=== PATIENT | female | born 1955 | race African-American/Black ===

== ENCOUNTER 2018-07-06 08:00 | Inpatient (IN) | payer OTHER ==
[2018-06-20 13:36] VITALS: BMI 28.3
[2018-07-06] MEDS ORDERED: TRANEXAMIC ACID 1000 MG/10 ML VIAL IVPUSH ONE (08:11)
[2018-07-06] MEDS ORDERED: VANCOMYCIN 1,000 MG in DEXTROSE 5%-WATER - 250 ML IVPB ONE (08:11)
[2018-07-06] MEDS ORDERED: PROPOFOL 20 ML ONE ×7 (11:58→15:09)
[2018-07-06] MEDS ORDERED: BUPIVACAINE HCL/PF 0.5% (5MG/ML) 10 ML VIAL ONE (12:34)
[2018-07-06] MEDS ORDERED: BUPIVACAINE LIPOSOME/PF (EXPAREL) 266 MG/20 ML VIAL ONE (12:47)
[2018-07-06] MEDS ORDERED: BUPIVACAINE HCL/PF (5 MG/ML) 30 ML VIAL IJ ONE (12:47)
[2018-07-06] MEDS ORDERED: MIDAZOLAM HCL 2 MG/2 ML SINGLE DOSE VIAL ONE (12:47)
[2018-07-06] MEDS ORDERED: morphine CARPU-JECT 10 MG/1 ML DISP.SYRIN ONE (12:59)
[2018-07-06] MEDS ORDERED: BUPIVACAINE HCL/PF 2.5 MG/ML - 30 ML VIAL IJ ONE (13:02)
[2018-07-06] MEDS ORDERED: KETOROLAC TROMETHAMINE 60 MG/2 ML VIAL ONE (13:02)
[2018-07-06] MEDS ORDERED: EPINEPHrine/PF 1 MG/1 ML (1:1,000) AMPULE ONE ×2 (13:03→13:25)
[2018-07-06] MEDS ORDERED: ONDANSETRON 4 MG/2 ML VIAL IVPUSH PRN ×2 (15:49→16:22)
[2018-07-06] MEDS ORDERED: MAG HYDROX/AL HYDROX/SIMETH 30 ML UNIT-DOSE CUP PO PRN (15:49)
--- NOTE | 2018-07-06 15:54 | PN ---
Progress Note (short form) - Note Progress Note: 63F s/p right total knee replacement POD #0. -Pain control. -DVT PPx: -Chemical: ASA 81mg PO BID x 6 weeks. -Mechanical: ALEX's, SCD's. -Incentive spirometry. -PT/OT/Rehab, OOB. -WBAT LLE. -Antibiotics: Ancef x 2 post op doses. -f/u post-op trial of void. -Diet as tolerated. -Keep dressing clean & dry. -Care per medical hospitalist team. -f/u [facility] [place] office 07/15/2018; call for appointment; [phone]. -Will follow. Edy Thomas MD (Orthopaedic Surgery).
--- NOTE | 2018-07-06 15:56 | OP ---
Operative Note - Note: Operative Date: 07/06/18 Pre-Operative Diagnosis: Right knee DJD Operation: Right total knee replacement Implants: Vamsi Triathlon. Femur - 4. Tibia - 3. Poly - 9mm, PS. Patella - 27mm Post-Operative Diagnosis: Same as Pre-op Surgeon: Edy Thomas Quality Control Coordinator: Ruben Thomas Anesthesiologist/MANAGER PEDIATRIC: Amie Newton Anesthesia: Spinal Specimens Removed: Bone, soft tissue Estimated Blood Loss (mls): 0 Drains & Tubes with Location: 1 x deep drain Fluid Volume Replaced (mls): 1,000 Operative Report Dictated: Yes
[2018-07-06] MEDS ORDERED: LACTATED RINGERS SOLUTION 1,000 ML IV SCH ×2 (16:00→16:30)
[2018-07-06] MEDS ORDERED: oxyCODONE HCL 5 MG TABLET PO PRN (16:22)
[2018-07-06] MEDS ORDERED: ACETAMINOPHEN 325 MG TABLET (FP) ONE (17:03)
[2018-07-06] MEDS ORDERED: ACETAMINOPHEN 325 MG TABLET (FP) PO ONE (17:15)
--- NOTE | 2018-07-06 19:25 | OP ---
DATE OF OPERATION: SURGEON: Edy Thomas M.D. MANAGER APPLICATION: Ruben Thomas M.D., Loni Stone PREOPERATIVE DIAGNOSIS: Tricompartment osteoarthritis right knee. POSTOPERATIVE DIAGNOSIS: Tricompartment osteoarthritis right knee with fixed valgus fixed deformity. ANESTHESIA: Spinal anesthesia with conscious sedation and appropriate peripheral block. OPERATION PERFORMED: Right posterior stabilized cemented total knee arthroplasty (PowerFile). ANTIBIOTICS GIVEN: 1 g Kefzol, 1 g vancomycin preoperative, 1 g Kefzol given at the end of the procedure. OPERATION DETAILS: The patient was correctly identified, brought in the operating room. Right lower extremity was prepped pre-draped in the routine manner with Betadine scrub solution, wiped with alcohol, DuraPrep applied. Midline incision was utilized. Dissection was taken through the subcutaneous tissue to the fascia, and through the quadriceps mechanism the quadriceps tendon was split longitudinally. The medial parapatellar incision utilized around the medial aspect of the tibial tubercle. The tissues were dissected sharply off the proximal medial tibia. The knee was flexed and the tibia subluxed anteriorly. The menisci resected, and the bone cuts were made using the PowerFile instrumentation system. This was tibia cut in neutral providing an accurate alignment along the mid shaft of the tibia. The femur was cut to 3 degrees of external rotation and 4 degrees of varus, the alternate cut was used at 10 mm. All bone cuts were made and prepared with the appropriate jig system. Once this had been performed, the bone bed was thoroughly lavaged, cementing was in one stage with to receive a size 4 Triathlon posterior stabilized femoral component, the universal baseplate measured size 3, and a 27 mm polyethylene liner inserted. The polyethylene liner for the tibia was a size 9 x 3. Patellar tracking was normal. Stability was excellent. The extension flexion gaps were even at 9 mm. All extraneous cement was removed appropriately. The knee was flexed with a negative thumb test test, revealing adequate patellar tracking. Closure: quadriceps tendon and parapatellar tendon with 1 Vicryl, subcutaneous 1 and 2-0 Vicryl, skin 3-0 Monocryl with Steri-Strips. Drainage one 8-inch Hemovac x1. No complications. MD JOSE ALEJANDRO Marquez/[id number] MTDD
[2018-07-06] MEDS: SENNOSIDES/DOCUSATE COMBO (SENNA PLUS) TABLET (UD) PO SCH (21:53)
[2018-07-06] MEDS: oxyCODONE HCL 10 MG SUSTAINED ACTING TABLET PO SCH (21:53)
[2018-07-06] MEDS: ASPIRIN 81 MG CHEWABLE TABLETS PO SCH (21:53)
[2018-07-06] MEDS: GABAPENTIN 300 MG CAPSULE (FP) PO SCH (21:53)
[2018-07-06] MEDS: CEFAZOLIN 1 GM/D5W 1 GM/50 ML BAG IVPB SCH (21:53)
[2018-07-06] MEDS: ACETAMINOPHEN 325 MG TABLET (FP) PO SCH (23:50)
[2018-07-07] MEDS: CEFAZOLIN 1 GM/D5W 1 GM/50 ML BAG IVPB SCH (01:33)
--- NOTE | 2018-07-07 08:04 | PN ---
Progress Note (short form) - Note Progress Note: Surgery POD #1 Right TKA patient seen and examined at bedside with no complaints. Patient has not ambulated with PT yet but is up to chair this morning. She is tolerating her diet and denies any CP, SOB, Fever, Chills, N/V. Vital Signs Temp 98.3 F 1018/18 06:39 Pulse 68 18 06:39 Resp 18 07/07/18 06:39 BP 120/60 07/07/18 06:39 Pulse Ox 94 L 07/07/18 06:39 Intake & Output 18 07/06/18 07/07/18 11:59 23:59 11:59 Intake Total 1850 400 Output Total 115 480 Balance 1735 -80 Weight 160 lb Intake: IV 1500 Oral 350 400 Output: Drainage 115 130 Right Knee 40 130 Urine 0 350 Void 350 Other: Voiding Method Bedpan Toilet Height 5 ft 3 in Body Mass Index (BMI) 28.3 Weight Measurement Method Standing Scale PE: A&Ox3, NAD Unlabored resp on RA right LE: Dressings C/D/I with drain securely in place, LE compartments soft, supple and non-tender with +DP pulses and SCDs in place, + Dorsi/ plantar flexion intact ROM at knee 0-75 degrees. Left LE:Compartments, soft, supple and non-tender with +DP pulses Problem List - Problems (1) S/P total knee arthroplasty Assessment/Plan: POD #1 Right TKA doing well -Pain control. -DVT PPx: -Chemical: ASA 81mg PO BID x 6 weeks. -Mechanical: ALEX's, SCD's. -Incentive spirometry. -PT/OT/Rehab, OOB. -WBAT RLE. -Diet as tolerated. -Keep dressing clean & dry. Code(s): Z96.659 - PRESENCE OF UNSPECIFIED ARTIFICIAL KNEE JOINT
[2018-07-07 08:25] LABS: HEMATOCRIT 37.7 % (32.4-45.2); HEMOGLOBIN 12.8 GM/dl (10.7-15.3); MCH 31.5 pg (25.7-33.7); MCHC 33.8 g/dl (32.0-36.0); MEAN CELL VOLUME 93.3 fl (80-96); MEAN PLT VOLUME 9.1 fl (7.5-11.1); PLATELET COUNT 200 K/MM3 (134-434); RBC 4.04 M/mm3 (3.60-5.2); RDW 13.3 % (11.6-15.6); WHITE BLOOD COUNT 8.7 K/mm3 (4.0-10.8)
[2018-07-07 08:36] LABS: ANION GAP 7 MMOL/L (8-16); BLOOD UREA NITROGEN 9 mg/dl (7-18); CALCIUM 8.5 mg/dl (8.4-10.2); CHLORIDE 102 mmol/L (98-107); CO2 27 mmol/L (22-28); CREATININE 0.7 mg/dl (0.6-1.3); GLUCOSE,RANDOM 125 mg/dl (74-106); POTASSIUM 3.8 mmol/L (3.5-5.1); SODIUM 136 mmol/L (136-145)
--- NOTE | 2018-07-07 08:44 | CONSULT ---
Consultation: REQUESTING PROVIDER: Dr Thomas CONSULT REQUEST: We have been asked to medically evaluate this patient for medical management. HISTORY OF PRESENT ILLNESS: Patient is a 63-year-old female with a past medical history of DJD, patient was admitted to the medical surgical floor after an elective right knee replacement 07/06/2018, spinal anesthesia, Dr Thomas REVIEW OF SYSTEMS: CONSTITUTIONAL: Absent: fever, chills, diaphoresis, generalized weakness, malaise, loss of appetite, weight change HEENT: Absent: rhinorrhea, nasal congestion, throat pain, throat swelling, difficulty swallowing, mouth swelling, ear pain, eye pain, visual changes CARDIOVASCULAR: Absent: chest pain, syncope, palpitations, irregular heart rate, lightheadedness , peripheral edema RESPIRATORY: Absent: cough, shortness of breath, dyspnea with exertion, orthopnea, wheezing, stridor, hemoptysis GASTROINTESTINAL: Absent: abdominal pain, abdominal distension, nausea, vomiting, diarrhea, constipation, melena, hematochezia GENITOURINARY: Absent: dysuria, frequency, urgency, hesitancy, hematuria, flank pain, genital pain MUSCULOSKELETAL: Present: right knee pain Absent: myalgia, arthralgia, joint swelling, back pain, neck pain SKIN: Absent: rash, itching, pallor HEMATOLOGIC/IMMUNOLOGIC: Absent: easy bleeding, easy bruising, lymphadenopathy, frequent infections ENDOCRINE: Absent: unexplained weight gain, unexplained weight loss, heat intolerance, cold intolerance NEUROLOGIC: Absent: headache, focal weakness or paresthesias, dizziness, unsteady gait, seizure, mental status changes, bladder or bowel incontinence PSYCHIATRIC: Absent: anxiety, depression, suicidal or homicidal ideation, hallucinations. PHYSICAL EXAMINATION Vital Signs - 24 hr 07/06/18 07/06/18 07/06/18 10:17 16:21 16:30 Temperature 98.5 F 97.7 F Pulse Rate 68 65 70 Respiratory 18 12 18 Rate Blood Pressure 143/79 115/62 115/69 O2 Sat by Pulse 100 100 Oximetry (%) 07/06/18 07/06/18 07/06/18 16:35 16:40 16:45 Temperature Pulse Rate 56 L 56 L 61 Respiratory 18 17 18 Rate Blood Pressure 143/68 124/66 128/65 O2 Sat by Pulse 100 100 100 Oximetry (%) 07/06/18 07/06/18 07/06/18 17:00 17:15 17:30 Temperature Pulse Rate 60 64 59 L Respiratory 10 14 12 Rate Blood Pressure 116/75 111/72 128/71 O2 Sat by Pulse 100 100 100 Oximetry (%) 07/06/18 07/06/18 07/06/18 17:45 18:00 21:00 Temperature Pulse Rate 54 L 58 L Respiratory 12 14 14 Rate Blood Pressure 131/75 130/71 O2 Sat by Pulse 100 Oximetry (%) 07/07/18 06:39 Temperature 98.3 F Pulse Rate 68 Respiratory 18 Rate Blood Pressure 120/60 O2 Sat by Pulse 94 L Oximetry (%) GENERAL: Awake, alert, and fully oriented, in no acute distress. HEAD: Normal with no signs of trauma. EYES: Pupils equal, round and reactive to light, extraocular movements intact, sclera anicteric, conjunctiva clear. No lid lag. EARS, NOSE, THROAT: Ears normal, nares patent, oropharynx clear without exudates. Moist mucous membranes. NECK: Normal range of motion, supple without lymphadenopathy, JVD, or masses. LUNGS: Breath sounds equal, clear to auscultation bilaterally. No wheezes, and no crackles. No accessory muscle use. HEART: Regular rate and rhythm, normal S1 and S2 without murmur, rub or gallop. ABDOMEN: Soft, nontender, not distended, normoactive bowel sounds, no guarding, no rebound, no masses. No hepatomegaly or splenomegaly. MUSCULOSKELETAL: Normal range of motion at all joints. No bony deformities or tenderness. No CVA tenderness. UPPER EXTREMITIES: 2+ pulses, warm, well-perfused. No cyanosis. No clubbing. Cap refill <2 seconds. No peripheral edema. RIGHT LOWER EXTREMITY: scdS, ALEX, hEMOVAC DRAIN, DRESSING CDI LOWER EXTREMITIES: 2+ pulses, warm, well-perfused. No calf tenderness. No peripheral edema. NEUROLOGICAL: Cranial nerves II-XII intact. Normal speech. Normal gait. PSYCHIATRIC: Cooperative. Good eye contact. Appropriate mood and affect. SKIN: Warm, dry, normal turgor, no rashes or lesions noted. Laboratory Results - last 24 hr 07/07/18 07/07/18 08:15 08:15 WBC 8.7 RBC 4.04 Hgb 12.8 Hct 37.7 MCV 93.3 MCH 31.5 MCHC 33.8 RDW 13.3 Plt Count 200 MPV 9.1 Sodium 136 Potassium 3.8 Chloride 102 Carbon Dioxide 27 Anion Gap 7 L BUN 9 Creatinine 0.7 Creat Clearance w eGFR > 60 Random Glucose 125 H Calcium 8.5 Active Medications Generic Name Dose Route Start Last Admin Trade Name Freq PRN Reason Stop Dose Admin Acetaminophen 650 mg 07/06/18 16:30 07/06/18 23:50 Tylenol - PO 07/09/18 16:29 650 mg Q6H DEMAR Administration Al Hydroxide/Mg Hydroxide 30 ml 07/06/18 15:49 Mylanta Oral Suspension - PO Q4H PRN DYSPEPSIA Aspirin 81 mg 07/06/18 22:00 07/06/18 21:53 Asa - PO 81 mg BID DEMAR Administration Gabapentin 300 mg 07/06/18 22:00 07/06/18 21:53 Neurontin - PO 300 mg BID DEMAR Administration Lactated Ringer's 1,000 mls @ 125 mls/hr 07/06/18 16:30 Lactated Ringers Solution IV ASDIR DEMAR Magnesium Hydroxide 30 ml 07/06/18 15:49 Milk Of Magnesia - PO PRN PRN CONSTIPATION Ondansetron HCl 4 mg 07/06/18 15:49 Zofran Injection IVPUSH Q6H PRN NAUSEA Oxycodone HCl 5 mg 07/06/18 16:22 Roxicodone - PO Q3H PRN PAIN LEVEL 1-5 Oxycodone HCl 10 mg 07/06/18 16:22 Roxicodone - PO Q3H PRN PAIN LEVEL 6-10 Oxycodone HCl 10 mg 07/06/18 22:00 07/06/18 21:53 Oxycontin - PO 07/09/18 16:23 10 mg BID DEMAR Administration Pantoprazole Sodium 40 mg 07/07/18 10:00 Protonix - PO DAILY DEMAR Senna/Docusate Sodium 2 tablet 07/06/18 22:00 07/06/18 21:53 Pericolace - PO 2 tablet BID DEMAR Administration ASSESSMENT/PLAN: 1) ms S/P RIGHT TOTAL KNEE REPLACEMENT, POST OP DAY 1 - prn pain medication - physical therapy as per the orthopedist - monitor drain output and hgb/hct Dispo: We will continue to follow the patient. Thank you for this consultative opportunity. Visit type - Emergency Visit Emergency Visit: No - New Patient This patient is new to me today: Yes Date on this admission: 07/07/18 - Critical Care Critical Care patient: No
--- NOTE | 2018-07-07 09:47 | PN ---
Progress Note, Physician Chief Complaint: s/p right knee arthroplasty post op day one History of Present Illness: under spinal anesthesia and peripheral nerve block for post op pain control - Current Medication List Current Medications: Active Medications Acetaminophen (Tylenol -) 650 mg PO Q6H [facility] Stop: 07/09/18 16:29 Last Admin: 07/06/18 23:50 Dose: 650 mg Al Hydroxide/Mg Hydroxide (Mylanta Oral Suspension -) 30 ml PO Q4H PRN PRN Reason: DYSPEPSIA Aspirin (Asa -) 81 mg PO BID [facility] Last Admin: 07/06/18 21:53 Dose: 81 mg Gabapentin (Neurontin -) 300 mg PO BID [facility] Last Admin: 07/06/18 21:53 Dose: 300 mg Lactated Ringer's (Lactated Ringers Solution) 1,000 mls @ 125 mls/hr IV ASDIR [facility] Magnesium Hydroxide (Milk Of Magnesia -) 30 ml PO PRN PRN PRN Reason: CONSTIPATION Ondansetron HCl (Zofran Injection) 4 mg IVPUSH Q6H PRN PRN Reason: NAUSEA Oxycodone HCl (Roxicodone -) 5 mg PO Q3H PRN PRN Reason: PAIN LEVEL 1-5 Oxycodone HCl (Roxicodone -) 10 mg PO Q3H PRN PRN Reason: PAIN LEVEL 6-10 Oxycodone HCl (Oxycontin -) 10 mg PO BID [facility] Stop: 07/09/18 16:23 Last Admin: 07/06/18 21:53 Dose: 10 mg Pantoprazole Sodium (Protonix -) 40 mg PO DAILY [facility] Senna/Docusate Sodium (Pericolace -) 2 tablet PO BID [facility] Last Admin: 07/06/18 21:53 Dose: 2 tablet - Objective Vital Signs: Vital Signs Temperature 98.8 F 07/07/18 08:53 Pulse Rate 67 07/07/18 08:53 Respiratory Rate 16 07/07/18 08:53 Blood Pressure 122/62 07/07/18 08:53 O2 Sat by Pulse Oximetry (%) 94 L 07/07/18 06:39 Constitutional: Yes: Well Nourished Cardiovascular: Yes: WNL Respiratory: Yes: WNL Gastrointestinal: Yes: WNL Labs: CBC, BMP 07/07/18 08:15 07/07/18 08:15 Assessment/Plan no adverse effect from anesthetic, no nausea or vomiting, pain controlled, dept of anesthesia will sign off care at this time.
[2018-07-07] MEDS: ACETAMINOPHEN 325 MG TABLET (FP) PO SCH ×4 (10:25→23:54)
[2018-07-07] MEDS: oxyCODONE HCL 10 MG SUSTAINED ACTING TABLET PO SCH ×2 (10:27→21:25)
[2018-07-07] MEDS: PANTOPRAZOLE 40 MG TABLET (FP) PO SCH (10:28)
[2018-07-07] MEDS: SENNOSIDES/DOCUSATE COMBO (SENNA PLUS) TABLET (UD) PO SCH ×2 (10:28→21:25)
[2018-07-07] MEDS: ASPIRIN 81 MG CHEWABLE TABLETS PO SCH ×2 (10:28→21:25)
[2018-07-07] MEDS: GABAPENTIN 300 MG CAPSULE (FP) PO SCH ×2 (10:29→21:25)
[2018-07-07] MEDS: oxyCODONE HCL 5 MG TABLET PO PRN (23:54)
[2018-07-08] MEDS: oxyCODONE HCL 5 MG TABLET PO PRN ×2 (06:54→10:20)
[2018-07-08] MEDS: ACETAMINOPHEN 325 MG TABLET (FP) PO SCH ×3 (06:55→22:55)
[2018-07-08 09:48] LABS: HEMATOCRIT 32.1 % (32.4-45.2); HEMOGLOBIN 10.9 GM/dl (10.7-15.3); MCH 31.5 pg (25.7-33.7); MCHC 33.9 g/dl (32.0-36.0); MEAN PLT VOLUME 9.3 fl (7.5-11.1); PLATELET COUNT 181 K/MM3 (134-434); RBC 3.45 M/mm3 (3.60-5.2); RDW 13.2 % (11.6-15.6); WHITE BLOOD COUNT 8.1 K/mm3 (4.0-10.8)
[2018-07-08] MEDS: ASPIRIN 81 MG CHEWABLE TABLETS PO SCH ×2 (10:18→21:56)
[2018-07-08] MEDS: oxyCODONE HCL 10 MG SUSTAINED ACTING TABLET PO SCH ×2 (10:19→21:55)
[2018-07-08] MEDS: PANTOPRAZOLE 40 MG TABLET (FP) PO SCH (10:20)
[2018-07-08] MEDS: SENNOSIDES/DOCUSATE COMBO (SENNA PLUS) TABLET (UD) PO SCH ×2 (10:20→21:55)
[2018-07-08] MEDS: GABAPENTIN 300 MG CAPSULE (FP) PO SCH ×2 (10:20→21:55)
--- NOTE | 2018-07-08 11:47 | PN ---
Physical Exam: SUBJECTIVE: Patient seen and examined, ambulated today with physical therapy, reports minimal pain upon movement, denies any paresthesia to the right lower extremity. OBJECTIVE: Patient is a 63-year-old female with a past medical history of DJD, patient was admitted to the medical surgical floor after an elective right knee replacement 07/06/2018, spinal anesthesia, Dr Thomas Vital Signs Period Temp Pulse Resp BP Sys/Saenz Pulse Ox Last 24 Hr 97.9 F-99.0 F 68-78 16-18 98-125/48-67 97-99 GENERAL: The patient is awake, alert, and fully oriented, in no acute distress. HEAD: Normal with no signs of trauma. EYES: PERRL, extraocular movements intact, sclera anicteric, conjunctiva clear. No ptosis. ENT: Ears normal, nares patent, oropharynx clear without exudates, moist mucous membranes. NECK: Trachea midline, full range of motion, supple. LUNGS: Breath sounds equal, clear to auscultation bilaterally, no wheezes, no crackles, no accessory muscle use. HEART: Regular rate and rhythm, S1, S2 without murmur, rub or gallop. ABDOMEN: Soft, nontender, nondistended, normoactive bowel sounds, no guarding, no rebound, no hepatosplenomegaly, no masses. EXTREMITIES: 2+ pulses, warm, well-perfused, no edema. RIGHT LOWER EXTREMITY: hemovac drain notable for 120ml of serrous sangenous drainage within the past 12 hours. scd/jose antonio, less than 3 second capillary refill , + 3 pedal pulse NEUROLOGICAL: Cranial nerves II through XII grossly intact. Normal speech, gait not observed. PSYCH: Normal mood, normal affect. SKIN: Warm, dry, normal turgor, no rashes or lesions noted Laboratory Results - last 24 hr 07/08/18 09:12 WBC 8.1 RBC 3.45 L Hgb 10.9 Hct 32.1 L MCV 93.0 MCH 31.5 MCHC 33.9 RDW 13.2 Plt Count 181 MPV 9.3 CMP Sodium 136 mmol/L (136-145) 07/07/18 08:15 Potassium 3.8 mmol/L (3.5-5.1) 07/07/18 08:15 Chloride 102 mmol/L (98-107) 07/07/18 08:15 Carbon Dioxide 27 mmol/L (22-28) 07/07/18 08:15 Anion Gap 7 MMOL/L (8-16) L 07/07/18 08:15 BUN 9 mg/dl (7-18) 07/07/18 08:15 Creatinine 0.7 mg/dl (0.6-1.3) 07/07/18 08:15 Creat Clearance w eGFR > 60 (>60) 07/07/18 08:15 Random Glucose 125 mg/dl (74-106) H 07/07/18 08:15 Calcium 8.5 mg/dl (8.4-10.2) 07/07/18 08:15 Active Medications Generic Name Dose Route Start Last Admin Trade Name Freq PRN Reason Stop Dose Admin Acetaminophen 650 mg 07/06/18 16:30 07/08/18 10:18 Tylenol - PO 07/09/18 16:29 650 mg Q6H DEMAR Administration Al Hydroxide/Mg Hydroxide 30 ml 07/06/18 15:49 Mylanta Oral Suspension - PO Q4H PRN DYSPEPSIA Aspirin 81 mg 07/06/18 22:00 07/08/18 10:18 Asa - PO 81 mg BID DEMAR Administration Gabapentin 300 mg 07/06/18 22:00 07/08/18 10:20 Neurontin - PO 300 mg BID DEMAR Administration Lactated Ringer's 1,000 mls @ 125 mls/hr 07/06/18 16:30 Lactated Ringers Solution IV ASDIR DEMAR Magnesium Hydroxide 30 ml 07/06/18 15:49 Milk Of Magnesia - PO PRN PRN CONSTIPATION Ondansetron HCl 4 mg 07/06/18 15:49 Zofran Injection IVPUSH Q6H PRN NAUSEA Oxycodone HCl 5 mg 07/06/18 16:22 07/08/18 10:20 Roxicodone - PO 5 mg Q3H PRN Administration PAIN LEVEL 1-5 Oxycodone HCl 10 mg 07/06/18 16:22 Roxicodone - PO Q3H PRN PAIN LEVEL 6-10 Oxycodone HCl 10 mg 07/06/18 22:00 18 10:19 Oxycontin - PO 07/09/18 16:23 10 mg BID DEMAR Administration Pantoprazole Sodium 40 mg 07/07/18 10:00 07/08/18 10:20 Protonix - PO 40 mg DAILY DEMAR Administration Senna/Docusate Sodium 2 tablet 07/06/18 22:00 07/08/18 10:20 Pericolace - PO 2 tablet BID DEMAR Administration ASSESSMENT/PLAN: 1) ms S/P RIGHT TOTAL KNEE REPLACEMENT, POST OP DAY 2 - prn pain medication -drain output 120ml within the past 12 hours - physical therapy as per the orthopedist - monitor drain output and hgb/hct, repeat hgb order for tomorrow am Dispo: We will continue to follow the patient. Thank you for this consultative opportunity. Visit type - Emergency Visit Emergency Visit: No - New Patient This patient is new to me today: No - Critical Care Critical Care patient: No - Discharge Referral Referred to [facility] Med P.C.: No
--- NOTE | 2018-07-08 16:24 | PATH ---
Surgical Pathology Report Patient Name: GAGANDEEP MCBRIDE Med. Rec. #: [id number] /Age/Gender: 1955 (Age: 63) / F Account: [id number] Location: [facility] MED-SURG Taken: 07/06/2018 Received: 07/06/2018 Reported: 07/08/2018 Physicians: Edy Thomas M.D. Specimen(s) Received BONE RIGHT KNEE Clinical History Right knee osteoarthritis Final Diagnosis BONE, KNEE, RIGHT, TOTAL KNEE REPLACEMENT: BONE WITH DEGENERATIVE JOINT DISEASE, FIBROADIPOSE TISSUE, AND REACTIVE SYNOVIUM. Electronically Signed Sharlene Johns M.D. Gross Description Received in formalin labeled "bone right knee," is an 8.5 x 7.0 x 1.7 cm aggregate of multiple portions of bone and soft tissue. The tibial plateau measures 7.0 x 5.5 x 1.4 cm. There is a 1.5 cm in greatest dimension area of eburnation present. The remaining articular surface is woo-yellow and focally granular. The underlying irregular bone is yellow and hard. Metal Buffer sections are submitted in one cassette, following decalcification. /07/07/2018 saudi07/07/2018
[2018-07-08 21:17] LABS: BASO % 0.8 % (0-2.0); EOS % 1.6 % (0-4.5); HEMATOCRIT 33.8 % (32.4-45.2); HEMOGLOBIN 11.2 GM/dl (10.7-15.3); LYMPH % 13.4 % (8-40); MCH 31.4 pg (25.7-33.7); MCHC 33.2 g/dl (32.0-36.0); MEAN CELL VOLUME 94.5 fl (80-96); MEAN PLT VOLUME 10.8 fl (7.5-11.1); MONO % 5.6 % (3.8-10.2); NEUT % 78.6 % (42.8-82.8); PLATELET COUNT 157 K/MM3 (134-434); RBC 3.57 M/mm3 (3.60-5.2); RDW 13.5 % (11.6-15.6); WHITE BLOOD COUNT 8.1 K/mm3 (4.0-10.8)
[2018-07-08 22:02] LABS: URINE APPEARANCE Clear; URINE BILIRUBIN Negative (NEGATIVE); URINE COLOR Yellow; URINE GLUCOSE (UA) Negative (NEGATIVE); URINE KETONE Negative (NEGATIVE); URINE LEUK ESTERASE Negative (NEGATIVE); URINE NITRITE Negative (NEGATIVE); URINE PROTEIN Negative (NEGATIVE); URINE UROBILINOGEN 0.2 (0.2-1.0)
[2018-07-09] MEDS: ACETAMINOPHEN 325 MG TABLET (FP) PO SCH ×2 (04:30→10:30)
[2018-07-09 08:42] LABS: BASO % 0.3 % (0-2.0); EOS % 2.2 % (0-4.5); HEMATOCRIT 32.5 % (32.4-45.2); HEMOGLOBIN 11.1 GM/dl (10.7-15.3); MCH 32.1 pg (25.7-33.7); MEAN CELL VOLUME 94.3 fl (80-96); MEAN PLT VOLUME 9.6 fl (7.5-11.1); MONO % 4.2 % (3.8-10.2); NEUT % 78.3 % (42.8-82.8); PLATELET COUNT 172 K/MM3 (134-434); RBC 3.45 M/mm3 (3.60-5.2); RDW 13.5 % (11.6-15.6); WHITE BLOOD COUNT 7.2 K/mm3 (4.0-10.8)
[2018-07-09] MEDS: ASPIRIN 81 MG CHEWABLE TABLETS PO SCH ×2 (10:14→21:09)
[2018-07-09] MEDS: SENNOSIDES/DOCUSATE COMBO (SENNA PLUS) TABLET (UD) PO SCH ×2 (10:14→21:09)
[2018-07-09] MEDS: GABAPENTIN 300 MG CAPSULE (FP) PO SCH ×2 (10:14→21:09)
[2018-07-09] MEDS: oxyCODONE HCL 10 MG SUSTAINED ACTING TABLET PO SCH ×2 (10:15→21:09)
[2018-07-09] MEDS: MAGNESIUM HYDROX 2400MG/30ML ORAL SUSPENSION 30 ML CUP PO PRN (10:15)
[2018-07-09] MEDS: PANTOPRAZOLE 40 MG TABLET (FP) PO SCH (10:15)
--- NOTE | 2018-07-09 11:38 | PN ---
Progress Note (short form) - Note Progress Note: Subjective: The patient was seen and examined at the bedside, she has no complaints at this time. Worked with PT this morning Reports pain is under control Current Medications Generic Name Dose Route Start Last Admin Trade Name Freq PRN Reason Stop Dose Admin Acetaminophen 650 mg 07/06/18 16:30 07/09/18 04:30 Tylenol - PO 07/09/18 16:29 Not Given Q6H DEMAR Al Hydroxide/Mg Hydroxide 30 ml 07/06/18 15:49 Mylanta Oral Suspension - PO Q4H PRN DYSPEPSIA Aspirin 81 mg 07/06/18 22:00 07/09/18 10:14 Asa - PO 81 mg BID DEMAR Administration Gabapentin 300 mg 07/06/18 22:00 07/09/18 10:14 Neurontin - PO 300 mg BID DEMAR Administration Magnesium Hydroxide 30 ml 07/06/18 15:49 07/09/18 10:15 Milk Of Magnesia - PO 30 ml PRN PRN Administration CONSTIPATION Ondansetron HCl 4 mg 07/06/18 15:49 Zofran Injection IVPUSH Q6H PRN NAUSEA Oxycodone HCl 5 mg 07/06/18 16:22 07/08/18 10:20 Roxicodone - PO 5 mg Q3H PRN Administration PAIN LEVEL 1-5 Oxycodone HCl 10 mg 07/06/18 16:22 Roxicodone - PO Q3H PRN PAIN LEVEL 6-10 Oxycodone HCl 10 mg 07/06/18 22:00 07/09/18 10:15 Oxycontin - PO 07/09/18 16:23 10 mg BID DEMAR Administration Pantoprazole Sodium 40 mg 07/07/18 10:00 07/09/18 10:15 Protonix - PO 40 mg DAILY DEMAR Administration Senna/Docusate Sodium 2 tablet 07/06/18 22:00 07/09/18 10:14 Pericolace - PO 2 tablet BID DEMAR Administration Objective: Vital Signs Period Temp Pulse Resp BP Sys/Saenz Pulse Ox Last 24 Hr 98.7 F-102.5 F 80-99 16-20 115-136/60-70 95-97 Physical Exam: General: NAD, A&Ox3 Lungs: CTA bilaterally Heart: RRR, S1S2 Abd: Soft, non-tender, non-distended. Normoactive bowel sounds Ext: Right knee dressing, c/d/i CBCD WBC 7.2 K/mm3 (4.0-10.8) 07/09/18 07:40 RBC 3.45 M/mm3 (3.60-5.2) L 07/09/18 07:40 Hgb 11.1 GM/dl (10.7-15.3) 07/09/18 07:40 Hct 32.5 % (32.4-45.2) 07/09/18 07:40 MCV 94.3 fl (80-96) 07/09/18 07:40 MCHC 34.0 g/dl (32.0-36.0) 07/09/18 07:40 RDW 13.5 % (11.6-15.6) 07/09/18 07:40 Plt Count 172 K/MM3 (134-434) 07/09/18 07:40 MPV 9.6 fl (7.5-11.1) 07/09/18 07:40 CMP Sodium 136 mmol/L (136-145) 07/07/18 08:15 Potassium 3.8 mmol/L (3.5-5.1) 07/07/18 08:15 Chloride 102 mmol/L (98-107) 07/07/18 08:15 Carbon Dioxide 27 mmol/L (22-28) 07/07/18 08:15 Anion Gap 7 MMOL/L (8-16) L 07/07/18 08:15 BUN 9 mg/dl (7-18) 07/07/18 08:15 Creatinine 0.7 mg/dl (0.6-1.3) 07/07/18 08:15 Creat Clearance w eGFR > 60 (>60) 07/07/18 08:15 Random Glucose 125 mg/dl (74-106) H 07/07/18 08:15 Calcium 8.5 mg/dl (8.4-10.2) 07/07/18 08:15 Assessment: This is a 63 year old female with PMHx of DJD who is s/p elective right knee replacement 07/06/2018 Plan: 1) Right knee replacement 07/06/18 - PT - Pain management - Drain with 180ml output yesterday - H/H stable - Rest of management per ortho Thank you for this consultative opportunity Visit type - Emergency Visit Emergency Visit: Yes ED Registration Date: 07/06/18 Care time: The patient presented to the Emergency Department on the above date and was hospitalized for further evaluation of their emergent condition. - New Patient This patient is new to me today: Yes Date on this admission: 07/09/18 - Critical Care Critical Care patient: No
[2018-07-09] MEDS ORDERED: oxyCODONE HCL 5 MG TABLET PO PRN ×2 (20:49)
[2018-07-10] MEDS: oxyCODONE HCL 10 MG SUSTAINED ACTING TABLET PO SCH ×2 (10:01→21:19)
[2018-07-10] MEDS: ASPIRIN 81 MG CHEWABLE TABLETS PO SCH ×2 (10:02→21:18)
[2018-07-10] MEDS: PANTOPRAZOLE 40 MG TABLET (FP) PO SCH (10:03)
[2018-07-10] MEDS: GABAPENTIN 300 MG CAPSULE (FP) PO SCH ×2 (10:03→21:18)
[2018-07-10] MEDS: SENNOSIDES/DOCUSATE COMBO (SENNA PLUS) TABLET (UD) PO SCH ×2 (10:03→21:18)
--- NOTE | 2018-07-10 12:02 | PN ---
Progress Note (short form) - Note Progress Note: Subjective: The patient was seen and examined at the bedside, she has no complaints at this time. Current Medications Generic Name Dose Route Start Last Admin Trade Name Freq PRN Reason Stop Dose Admin Al Hydroxide/Mg Hydroxide 30 ml 07/06/18 15:49 Mylanta Oral Suspension - PO Q4H PRN DYSPEPSIA Aspirin 81 mg 07/06/18 22:00 07/10/18 10:02 Asa - PO 81 mg BID DEMAR Administration Gabapentin 300 mg 07/06/18 22:00 07/10/18 10:03 Neurontin - PO 300 mg BID DEMAR Administration Magnesium Hydroxide 30 ml 07/06/18 15:49 07/09/18 10:15 Milk Of Magnesia - PO 30 ml PRN PRN Administration CONSTIPATION Ondansetron HCl 4 mg 07/06/18 15:49 Zofran Injection IVPUSH Q6H PRN NAUSEA Oxycodone HCl 5 mg 07/09/18 20:49 Roxicodone - PO Q3H PRN PAIN Oxycodone HCl 10 mg 07/09/18 20:49 Roxicodone - PO Q3H PRN PAIN Oxycodone HCl 10 mg 07/09/18 22:00 07/10/18 10:01 Oxycontin - PO 10 mg BID DEMAR Administration Pantoprazole Sodium 40 mg 07/07/18 10:00 07/10/18 10:03 Protonix - PO 40 mg DAILY DEMAR Administration Senna/Docusate Sodium 2 tablet 07/06/18 22:00 07/10/18 10:03 Pericolace - PO 2 tablet BID DEMAR Administration Objective: Vital Signs Period Temp Pulse Resp BP Sys/Saenz Pulse Ox Last 24 Hr 98.4 F-99.3 F 80-97 16-19 102-129/61-73 96-100 Physical Exam: General: NAD, A&Ox3 Lungs: CTA bilaterally Heart: RRR, S1S2 Abd: Soft, non-tender, non-distended. Normoactive bowel sounds Ext: Right knee dressing, c/d/i CBCD WBC 7.2 K/mm3 (4.0-10.8) 07/09/18 07:40 RBC 3.45 M/mm3 (3.60-5.2) L 07/09/18 07:40 Hgb 11.1 GM/dl (10.7-15.3) 07/09/18 07:40 Hct 32.5 % (32.4-45.2) 07/09/18 07:40 MCV 94.3 fl (80-96) 07/09/18 07:40 MCHC 34.0 g/dl (32.0-36.0) 07/09/18 07:40 RDW 13.5 % (11.6-15.6) 07/09/18 07:40 Plt Count 172 K/MM3 (134-434) 07/09/18 07:40 MPV 9.6 fl (7.5-11.1) 07/09/18 07:40 CMP Sodium 136 mmol/L (136-145) 07/07/18 08:15 Potassium 3.8 mmol/L (3.5-5.1) 07/07/18 08:15 Chloride 102 mmol/L (98-107) 07/07/18 08:15 Carbon Dioxide 27 mmol/L (22-28) 07/07/18 08:15 Anion Gap 7 MMOL/L (8-16) L 07/07/18 08:15 BUN 9 mg/dl (7-18) 07/07/18 08:15 Creatinine 0.7 mg/dl (0.6-1.3) 07/07/18 08:15 Creat Clearance w eGFR > 60 (>60) 07/07/18 08:15 Random Glucose 125 mg/dl (74-106) H 07/07/18 08:15 Calcium 8.5 mg/dl (8.4-10.2) 07/07/18 08:15 Microbiology 07/08/18 20:50 Urine - Urine Clean Catch Urine Culture - Final Contaminated: Please Repeat 07/09/18 00:01 Blood - Peripheral Venous Blood Culture - Preliminary NO GROWTH OBTAINED AFTER 24 HOURS, INCUBATION TO CONTINUE FOR 4 DAYS. 07/09/18 00:01 Blood - Peripheral Venous Blood Culture - Preliminary NO GROWTH OBTAINED AFTER 24 HOURS, INCUBATION TO CONTINUE FOR 4 DAYS. Assessment: This is a 63 year old female with PMHx of DJD who is s/p elective right knee replacement 07/06/2018 Plan: 1) Right knee replacement 07/06/18 - PT - Pain management - Drain with 180ml output yesterday - H/H stable - Rest of management per ortho Thank you for this consultative opportunity Visit type - Emergency Visit Emergency Visit: Yes ED Registration Date: 07/06/18 Care time: The patient presented to the Emergency Department on the above date and was hospitalized for further evaluation of their emergent condition. - New Patient This patient is new to me today: No - Critical Care Critical Care patient: No
[2018-07-11 06:40] VITALS: BP 104/66; PULSE 77; TEMP 98.6
--- NOTE | 2018-07-11 09:13 | PN ---
Progress Note (short form) - Note Progress Note: 52F s/p RIGHT total knee replacement POD #4. Pain well controlled. No acute events overnight. Pt. denies overnight history of headaches, chest pain, shortness of breath, nausea, vomiting, chills, & sweats. (+) Voiding; (+) Flatus; (?) BM. Tolerating diet. (+) Walked in hallway. All labs and vitals reviewed. PE: AAO x 3, NAD. R-Knee: Dressing C/D/I. Drain intact & in place, removed on rounds. NVI distally. A/P: 52F s/p RIGHT total knee replacement POD #4. -Pain control. -DVT PPx: -Chemical: ASA 81mg PO BID x 6 weeks. -Mechanical: ALEX's, SCD's. -Incentive spirometry q15 min. -PT/OT/Rehab, OOB. -WBAT RLE. -Diet as tolerated. -Care per medical hospitalist team. -Discharge planning; f/u [facility] [place] office 07/16/2018; call for appointment; . -Will follow. Ruben Thomas MD (Orthopaedic Surgery).
--- NOTE | 2018-07-11 09:39 | DS ---
Physical Exam: SUBJECTIVE: Patient seen and examined, sitting in bedside recliner reports reports minimal pain to the right lower extremity, denies any paresthesia to the extremity OBJECTIVE: Patient is a 63-year-old female with a past medical history of DJD, patient was admitted to the medical surgical floor after an elective right knee replacement 07/06/2018, spinal anesthesia, Dr Thomas Vital Signs Period Temp Pulse Resp BP Sys/Saenz Pulse Ox Last 24 Hr 98.6 F-99.8 F 77-90 16-20 104-138/66-78 97-100 PHYSICAL EXAM GENERAL: The patient is awake, alert, and fully oriented, in no acute distress. HEAD: Normal with no signs of trauma. EYES: PERRL, extraocular movements intact, sclera anicteric, conjunctiva clear. ENT: Ears normal, nares patent, oropharynx clear without exudates, moist mucous membranes. NECK: Trachea midline, full range of motion, supple. LUNGS: Breath sounds equal, clear to auscultation bilaterally, no wheezes, no crackles, no accessory muscle use. HEART: Regular rate and rhythm, S1, S2 without murmur, rub or gallop. ABDOMEN: Soft, nontender, nondistended, normoactive bowel sounds, no guarding, no rebound, no hepatosplenomegaly, no masses. EXTREMITIES: 2+ pulses, warm, well-perfused, no edema. RIGHT LOWER EXTREMITY: scd/jose antonio, dressing cdi, less than 3 second capillary refill +3 pedal pulse NEUROLOGICAL: Cranial nerves II through XII grossly intact. Normal speech, gait not observed. PSYCH: Normal mood, normal affect. SKIN: Warm, dry, normal turgor, no rashes or lesions noted. LABS CBC WBC 7.2 K/mm3 (4.0-10.8) 07/09/18 07:40 RBC 3.45 M/mm3 (3.60-5.2) L 07/09/18 07:40 Hgb 11.1 GM/dl (10.7-15.3) 07/09/18 07:40 Hct 32.5 % (32.4-45.2) 07/09/18 07:40 MCV 94.3 fl (80-96) 07/09/18 07:40 MCH 32.1 pg (25.7-33.7) 07/09/18 07:40 MCHC 34.0 g/dl (32.0-36.0) 07/09/18 07:40 RDW 13.5 % (11.6-15.6) 07/09/18 07:40 Plt Count 172 K/MM3 (134-434) 07/09/18 07:40 MPV 9.6 fl (7.5-11.1) 07/09/18 07:40 Absolute Neuts (auto) 5.6 K/mm3 07/09/18 07:40 Neutrophils % 78.3 % (42.8-82.8) 07/09/18 07:40 Lymphocytes % 15.0 % (8-40) 07/09/18 07:40 Monocytes % 4.2 % (3.8-10.2) 07/09/18 07:40 Eosinophils % 2.2 % (0-4.5) 07/09/18 07:40 Basophils % 0.3 % (0-2.0) 07/09/18 07:40 CMP Sodium 136 mmol/L (136-145) 07/07/18 08:15 Potassium 3.8 mmol/L (3.5-5.1) 07/07/18 08:15 Chloride 102 mmol/L (98-107) 07/07/18 08:15 Carbon Dioxide 27 mmol/L (22-28) 07/07/18 08:15 Anion Gap 7 MMOL/L (8-16) L 07/07/18 08:15 BUN 9 mg/dl (7-18) 07/07/18 08:15 Creatinine 0.7 mg/dl (0.6-1.3) 07/07/18 08:15 Creat Clearance w eGFR > 60 (>60) 07/07/18 08:15 Random Glucose 125 mg/dl (74-106) H 07/07/18 08:15 Calcium 8.5 mg/dl (8.4-10.2) 07/07/18 08:15 Laboratory Tests 07/08/18 20:50 Urine Color Yellow Urine Appearance Clear Urine pH 7.0 Ur Specific [place] 1.010 Urine Protein Negative Urine Glucose (UA) Negative Urine Ketones Negative Urine Blood Trace-intact H Urine Nitrite Negative Urine Bilirubin Negative Urine Urobilinogen 0.2 Ur Leukocyte Esterase Negative HOSPITAL COURSE: The patient was admitted to the Med-Surg Unit after an elective right total knee replacement, Dr Thomas, 07/06/18. An xray was obtained in the OR and confirmed hardware placementin good position with no fractures or dislocations. The day of surgery, the patient ambulated the hallways with assistance. Narcotic and non-narcotic pain management control was achieved with an oral and IV approach. POD #4, the surgical drain was removed fully intact and without incident. Camille-operative IV ABX were administered. DVT prophylaxis was achieved with SCDs and early ambulation. The patient ambulated with Physical Therapy and will recieve home physical therapy services upon discharge. Narcotic scripts were checked with [facility] prior to escibe. The discharge instructions and an oral pain management plan were reviewed with the patient. All questions answered. Above plan discussed with Dr. Thomas and agreed. Date of Admission:07/06/18 Date of Discharge: 07/11/18 Minutes to complete discharge: 45 Discharge Summary Reason For Visit: UNILATERAL OSTEOARTHRITIS Current Active Problems S/P total knee arthroplasty (Acute) Condition: Stable - Instructions Diet, Activity, Other Instructions: Dr. Thomas Discharge Instructions for Knee Replacement Post Operative Instructions Physical activity Physical Therapist will come to your home for the first 5 days. You will be set up with outpatient PT at your first post-operative visit. Use assistive devices for ambulation at all times. Weight bearing as tolerated on your surgical side. Do not put pillow under knee. May put pillow under heel. Wound care Leave your surgical dressing in place. Do not change the dressing until seen by your surgeon in the office. No baths or showers. Do not submerge your incision. Do not apply any ointments or lotions to your incision. Please call the office if your dressing is soiled/dirty or is falling off. Apply Graduated Compression Stockings (TEDS) to both lower extremities - remove daily for hygiene ONLY. Diet There are no dietary restrictions. Eat healthy, high-fiber foods. Drink 6 to 8 glasses of liquid each day. This will assist in keeping your bowels are regular. Pain management Any pain prescription medication ordered should be taken as prescribed for moderate to severe pain. Do not take additional Tylenol while taking Percocet. Take Aspirin 81 mg two times a day for a total of 6 weeks to prevent blood clots. Call Dr. Thomas for any of the following: Severe pain not relieved by medication Fever of 101 or higher Excessive bleeding or drainage on dressing Inability to urinate If you experience chest pain or shortness of breath, please seek emergency care immediately. Please call the office at to confirm your post-op appointment for the week following surgery. Disposition: HOME - Home Medications Comprehensive Discharge Medication List: Ambulatory Orders NK [No Known Home Medication] 06/20/18 This patient is new to me today: No Emergency Visit: No Critical Care patient: No - Discharge Referral Referred to [facility] No
[2018-07-11] MEDS: oxyCODONE HCL 10 MG SUSTAINED ACTING TABLET PO SCH (09:43)
[2018-07-11] MEDS: MAGNESIUM HYDROX 2400MG/30ML ORAL SUSPENSION 30 ML CUP PO PRN (09:44)
[2018-07-11] MEDS: SENNOSIDES/DOCUSATE COMBO (SENNA PLUS) TABLET (UD) PO SCH (09:44)
[2018-07-11] MEDS: GABAPENTIN 300 MG CAPSULE (FP) PO SCH (09:44)
[2018-07-11] MEDS: PANTOPRAZOLE 40 MG TABLET (FP) PO SCH (09:44)
[2018-07-11] MEDS: ASPIRIN 81 MG CHEWABLE TABLETS PO SCH (09:44)
== END 2018-07-11 11:52 | disposition home health service (06) | DRG 470 ==
LOC: FM/S 09:25
PROVIDERS: ADMIT Orthopaedic Surgery Orthopaedic Surgery of the Spine; ATTEND Orthopaedic Surgery Orthopaedic Surgery of the Spine
PROC: 0SRC0J9 Replacement of Right Knee Joint with Synthetic Substitute, Cemented, Open Approach (ICD-10-PCS; principal; 2018-07-06 14:08)
DX: M17.11 Unilateral primary osteoarthritis, right knee (principal); M21.061 Valgus deformity, not elsewhere classified, right knee
CPT/HCPCS: 36415; 73560-TC-RT-FY; 80048; 81003; 81015; 85025; 85027; 87040; 87086; 88305-TC; 88311-TC; 94760; 97116-GP; 97162-GP